=== PATIENT | female | born 1970 | race Caucasian/White ===

== ENCOUNTER 2024-04-28 16:48 | Emergency (ER) | payer SELFPAY ==
[~2024-04-28] VITALS: Ht 160 cm; Wt 50.0 kg
[2024-04-28 16:54] VITALS: BP 142/80; PULSE 88; RESP 18; TEMP 97.9; O2SAT 100
== END 2024-04-28 17:40 | disposition left against medical advice (07) ==
LOC: ER 16:48
DX: F41.9 Anxiety disorder, unspecified (principal); Z53.21 Procedure and treatment not carried out due to patient leaving prior to being seen by health care provider
CPT/HCPCS: 99283